=== PATIENT | female | born 1970 | race African-American/Black ===

== ENCOUNTER 2024-02-17 05:31 | Emergency (ER) | payer SELFPAY ==
[~2024-02-17] VITALS: Ht 149.9 cm; Wt 68.5 kg
[2024-02-17 05:38] VITALS: TEMP 98.1; O2SAT 100
[2024-02-17 06:34] LABS: CLARITY URINE CLEAR (CLEAR); COLOR URINE YELLOW (YELLOW); GLUCOSE URINE NEGATIVE (NEGATIVE); KETONES URINE NEGATIVE (NEGATIVE); LEUKOCYTE ESTERASE URINE NEGATIVE (NEGATIVE); NITRITE URINE NEGATIVE (NEGATIVE); OCCULT BLOOD URINE NEGATIVE (NEGATIVE); PH URINE 5.5 (4.5-8.0); PROTEIN URINE NEGATIVE (NEGATIVE); SPECIFIC GRAVITY URINE 1.084 (1.005-1.030); UROBILINOGEN URINE 0.2 E.U./dL (0.2-1.0)
[2024-02-17 06:42] LABS: *AMPHETAMINES SCREEN URINE NEGATIVE (NEGATIVE); *BARBITURATES SCREEN URINE NEGATIVE (NEGATIVE); *BENZODIAZEPINES SCREEN URINE PRESUMPTIVE POSITIVE (NEGATIVE); *COCAINE SCREEN URINE NEGATIVE (NEGATIVE)
[2024-02-17 06:43] LABS: CANNABINOID URINE SCREEN NEGATIVE (NEGATIVE); ECSTASY MDMA SCREEN URINE NEGATIVE (NEGATIVE); METHADONE URINE SCREEN NEGATIVE (NEGATIVE); OPIATES URINE SCREEN PRESUMPTIVE POSITIVE (NEGATIVE); PHENCYCLIDINE URINE SCREEN NEGATIVE (NEGATIVE)
[2024-02-17 06:45] VITALS: BP 173/106; PULSE 100; RESP 20
[2024-02-17] MEDS: HYDROCODONE/ACETAMINOPHEN 5/325MG TABLET PO ONE (06:45)
[2024-02-17] MEDS: ASPIRIN 325MG EC TABLET PO ONE (06:45)
[2024-02-17] MEDS: PANTOPRAZOLE 40MG DR TABLET PO ONE (06:45)
[2024-02-17] MEDS: MORPHINE SULFATE 4 MG/ML INJ (FOR IV/IM USE) IM ONE (07:30)
[2024-02-17] MEDS: ONDANSETRON 4MG ODT PO ONE (07:30)
== END 2024-02-17 07:59 | disposition home or self-care (01) ==
LOC: ER 05:51
DX: R07.89 Other chest pain (principal); I10 Essential (primary) hypertension; I25.2 Old myocardial infarction; M25.511 Pain in right shoulder; Z90.49 Acquired absence of other specified parts of digestive tract; Z88.6 Allergy status to analgesic agent; Z90.89 Acquired absence of other organs
CPT/HCPCS: 80305; 81003; 93005; 96372; 99284; Q0162; J2270; Z7610